=== PATIENT | female | born 1980 | race Two or more races ===

== ENCOUNTER 2019-07-03 21:42 | Emergency (ER) | payer OTHER ==
[~2019-07-03] VITALS: Ht 157.5 cm; Wt 72.6 kg
[2019-07-03] MEDS ORDERED: DIGOXIN0.125 MG/2 (22:27)
== END 2019-07-04 13:30 | disposition home or self-care (01) ==
LOC: ER 21:42
DX: O26.891 Other specified pregnancy related conditions, first trimester (principal); R00.0 Tachycardia, unspecified; Z34.01 Encounter for supervision of normal first pregnancy, first trimester

== ENCOUNTER → 2019-07-04 | Outpatient (CLI) | payer OTHER ==
[~2019-07-04] MED LIST: DIGOXIN0.125 MG/2
== END | disposition home or self-care (01) ==
LOC: NUCLEAR 14:03
DX: R55 Syncope and collapse (principal); I20.9 Angina pectoris, unspecified

== ENCOUNTER 2019-10-02 09:40 | Outpatient (CLI) | payer OTHER ==
[2019-10-02] MEDS ORDERED: IRON325 MG PO (09:43)
[2019-10-02] MEDS ORDERED: FOLIC ACID20 MG PO (09:43)
== END 2019-10-02 13:37 | disposition home or self-care (01) ==
LOC: OBS/DEL 09:40
DX: O46.8X2 Other antepartum hemorrhage, second trimester (principal)

== ENCOUNTER 2019-10-31 10:25 | Outpatient (CLI) | payer OTHER ==
[~2019-10-31 10:25] MED LIST changes: +FOLIC ACID20 MG PO; +IRON325 MG PO
== END 2019-10-31 11:06 | disposition home or self-care (01) ==
LOC: NST 10:25
DX: Z34.83 Encounter for supervision of other normal pregnancy, third trimester (principal)

== ENCOUNTER 2019-12-12 11:16 | Inpatient (IN) | payer OTHER ==
[~2019-12-12] VITALS: Ht 157.5 cm; Wt 2.7 kg
[2020-01-11] MEDS ORDERED: OXYC1TAB9 PO (09:13)
== END 2020-01-11 12:23 | disposition home or self-care (01) | DRG 788 ==
LOC: SURG 01-02 12:15 → SURG-SUITE 01-08 07:00 → O/R 01-08 07:00 → SURG 01-08 07:00 → SURG-SUITE 01-08 09:42 → SURG 01-08 12:15 → SURG-SUITE 01-11 12:23
PROVIDERS: ADMIT Obstetrics & Gynecology
PROC: 3E033VJ Introduction of Other Hormone into Peripheral Vein, Percutaneous Approach (ICD-10-PCS; 2020-01-08)
PROC: 4A1HXFZ Monitoring of Products of Conception, Cardiac Rhythm, External Approach (ICD-10-PCS; 2020-01-08)
PROC: 10D00Z1 Extraction of Products of Conception, Low, Open Approach (ICD-10-PCS; principal; 2020-01-08 07:00)
DX: O34.29 Maternal care due to uterine scar from other previous surgery (principal); O24.420 Gestational diabetes mellitus in childbirth, diet controlled; Z3A.38 38 weeks gestation of pregnancy; Z37.0 Single live birth

== ENCOUNTER 2020-01-02 10:07 | Outpatient (CLI) | payer OTHER | END 2020-01-02 11:02 | disposition home or self-care (01) | LOC: NST 10:07 | DX: Z34.83 Encounter for supervision of other normal pregnancy, third trimester (principal) ==

== ENCOUNTER 2024-10-16 07:28 | Day surgery (SDC) | payer OTHER ==
[2024-10-10 08:58] VITALS: BP 132/84
[2024-10-10 10:50] LABS: HEMATOCRIT 40.9 % (36.0-45.00); HEMOGLOBIN 13.8 g/dL (12.0-15.00); MEAN CELL VOLUME 89.9 fL (80.00-100.00); MEAN CORPUSCULAR HEMOGLOBIN 30.3 pg (27.00-32.0); MEAN CORPUSCULAR HGB CONC 33.7 g/dl (32.0-36.0); PLATELET COUNT 324 K/uL (150-450); RED BLOOD COUNT 4.55 M/uL (4.00-6.00); RED CELL DISTRIBUTION WIDTH 12.5 % (11.5-14.5)
[2024-10-10 11:26] LABS: INR 1.03; PARTIAL THROMBOPLASTIN TIME 32.8 SECONDS (22.0-34.0); PROTHROMBIN TIME 11.2 SECONDS (9.0-11.5)
[2024-10-10 12:05] LABS: ALBUMIN 3.7 gm/dL (3.4-5.0); BILIRUBIN TOTAL 0.62 mg/dL (0.3-1.2); CALCIUM 8.9 mg/dL (8.5-10.1); CREATININE SERUM 0.45 mg/dL (0.55-1.02); GFR 151.36; GLOBULINA 3.4 G/DL (2.4-3.5); POTASSIUM 3.92 mEq/L (3.5-5.1); TOTAL PROTEIN 7.1 gm/dL (6.4-8.2)
[~2024-10-16] VITALS: Ht 157.5 cm; Wt 67.1 kg
[~2024-10-16 07:28] MED LIST changes: +MULTI-VITAMIN1 EACH PO; +OMEGA 3 1,0001 EACH PO; +OXYC1TAB9 PO
[2024-10-16] MEDS ORDERED: POVIDONE-IODINE 118 ML BOTT TOP ONE (13:15)
[2024-10-16] MEDS ORDERED: PROMETHAZINE HCL 50 MG/ML AMPUL IM ONE (15:45)
[2024-10-16] MEDS ORDERED: ONDANSETRON HCL 2 MG/ML VIAL ONE (16:26)
[2024-10-16] MEDS ORDERED: MORPHINE SULFATE 4 MG/ML VIAL IV ONE (16:30)
[2024-10-16] MEDS ORDERED: ONDANSETRON HCL 2 MG/ML VIAL IV ONE (17:15)
== END 2024-10-16 17:50 | disposition home or self-care (01) ==
LOC: CIR.AMB 07:28
PROVIDERS: ATTEND Obstetrics & Gynecology
DX: N83.8 Other noninflammatory disorders of ovary, fallopian tube and broad ligament (principal); Z30.2 Encounter for sterilization; Z88.4 Allergy status to anesthetic agent; Z88.1 Allergy status to other antibiotic agents